=== PATIENT | male | born 1980 | race Caucasian/White ===

== ENCOUNTER 2023-07-28 01:13 | Day surgery (SDC) | payer BC, SELFPAY ==
[2023-07-18 10:11] VITALS: BMI 25.5
[2023-07-28 06:10] VITALS: BP 117/71; PULSE 55; RESP 16; TEMP 36.2; O2SAT 99; BMI 25.7
[2023-07-28] MEDS: LACTATED RINGERS 1,000 ML 150 ML IV CONT (06:27)
--- NOTE | 2023-07-28 07:26 | P.PNAN_ITS ---
Anes - Initial Pre Proc Eval Procedure: Operation Date: 07/28/23 07:30 Proposed Procedures p Screening Colonoscopy - Pavan Ramirez MD Date/Time: 07/28/23 07:26 Surgeon: Pavan Ramirez MD Pre Op Diagnosis: neoplasm screening Patient Data Age: 43 Gender: M Height: 1.78 m Weight: 81.3 kg Last Vital Signs Temp 97.1 F L 07/28/23 06:10 Pulse 55 L 07/28/23 06:10 Resp 16 07/28/23 06:10 BP 117/71 07/28/23 06:10 Pulse Ox 99 07/28/23 06:10 O2 Del Method Room Air 07/28/23 06:10 Allergies Allergy/AdvReac Type Severity Reaction Status Date / Time No Known Allergies Allergy Verified 07/28/23 06:18 Patient hx anesthesia problems: none Family hx anesthesia problems: none Results Review: All pre-operative results and documents have been reviewed as part of the pre- operative evaluation. [facility] Social History Social History Smoking status: Never smoker Alcohol intake: former Alcohol use details: stopped 2019, previous use 7 drinks per week Substance use: current Substance use type: other Other substance usage details: CBD Gummies Living arrangements: with family Spiritual care concerns: No Anes - Eval Final PreProcedure Day of Procedure 07/28/23 07:26 Patient weight: normal Heart: regular rate and rhythm Lungs: clear to auscultation Airway: Mallampati scale class 1 Neurological: alert and oriented Last oral intake: >/= 8 hours ASA classification: I Emergent: no Anesthetic plan: proceed Anesthesia type and monitoring: general GIVS and standard monitoring Results Review: All pre-operative results and documents have been reviewed as part of the pre- operative evaluation. Informed Consent: The patient's anesthetic plan and its attendant risks and benefits were discussed with the patient/family/POA. Questions were solicited and answers provided to the satisfaction of the patient/family/POA.
--- NOTE | 2023-07-28 07:46 | P.HP_ITS ---
History of Present Illness History of Present Illness Consent: Risks, benefits, and alternatives have been discussed and questions answered. Patient agrees to proceed with procedure. Chief complaint: neoplasm screening Narrative: James Quan Jr. is a 43 year old male Presents for screening colonoscopy. Patient's current weight appetite and bowel movements are normal. Patient denies abdominal pain. He has had no bleeding. Family history is noncontributory. Review of Systems Review of Systems: Review of systems noncontributory. ON LICENSE OF [facility] Social History Social History Smoking status: Never smoker Alcohol intake: former Alcohol use details: stopped 2019, previous use 7 drinks per week Substance use: current Substance use type: other Other substance usage details: CBD Gummies Living arrangements: with family Spiritual care concerns: No Meds Home Medications and Allergies Allergies Allergy/AdvReac Type Severity Reaction Status Date / Time No Known Allergies Allergy Verified 07/28/23 06:18 Vital Signs Vital Signs - 24 hr 07/28/23 06:10 Temperature 97.1 F L Pulse Rate 55 L Respiratory Rate 16 Blood Pressure 117/71 Pulse Oximetry 99 Oxygen Delivery Room Air Exam Narrative: Physical exam reveals patient to be alert. Vital signs stable. HEENT exam is unremarkable. Patient is anicteric. Lungs are clear to auscultation and percussion. Heart is without murmur or extra sounds. Abdomen bowel sounds are present soft nontender with no hepatosplenomegaly. Digital external rectal exam is normal. Assessment and Plan Assessment and plan (1) Encounter for screening colonoscopy: Code(s): Z12.11 - Encounter for screening for malignant neoplasm of colon Status: Acute Assessment and Plan: Patient presents today for screening colonoscopy. He appears to be at average risk for colon polyps. Plan for screening colonoscopy at this time. Further recommendations may be given after endoscopy.
[2023-07-28 07:48] VITALS: BP 101/57; PULSE 62; RESP 18; O2SAT 95
[2023-07-28 07:58] VITALS: BP 118/73; PULSE 65; RESP 20; O2SAT 99
[2023-07-28 08:08] VITALS: BP 115/72; PULSE 58; RESP 13; O2SAT 100
== END 2023-07-28 08:13 | disposition home or self-care (01) ==
PROVIDERS: PCP Physician Assistant; Visit Provider Internal Medicine Gastroenterology
PROC: 0DJD8ZZ Inspection of Lower Intestinal Tract, Via Natural or Artificial Opening Endoscopic (ICD-10-PCS; CPT 45378; principal; 2023-07-28 07:30)
DX: Z12.11 Encounter for screening for malignant neoplasm of colon (principal); D12.2 Benign neoplasm of ascending colon; K64.8 Other hemorrhoids
CPT/HCPCS: 45380; 88305; J2704; J7120

== ENCOUNTER 2025-01-24 09:04 | Outpatient (CLI) | payer BC, SELFPAY ==
--- NOTE | ~2025-01-24 | US_ITS ---
EXAMINATION: US soft tissue chest DATE: 01/24/2025 09:22 INDICATION: Infrasternal chest wall subcutaneous nodule TECHNIQUE: Multiple grayscale and Doppler ultrasound images of the infrasternal chest wall region of concern were obtained. COMPARISON: None FINDINGS: 1.8 x 1.5 x 1.1 cm superficial subcutaneous mass at the region of concern which is isoechoic and with similar echotexture to the surrounding subcutaneous fat most consistent with a lipoma. There is a sm all central crescentic hypoechoic region with posterior acoustic shadowing which could represent efra y calcification consistent ascending fat necrosis. IMPRESSION: 1. 1.8 cm subcutaneous mass at the region of concern with appearance most consistent with and statist ically most likely to represent a lipoma. Reviewed, dictated and finalized at location B. IMPRESSION: 1. 1.8 cm subcutaneous mass at the region of concern with appearance most consi stent with and statistically most likely to represent a lipoma.
--- NOTE | ~2025-01-24 | US_ITS ---
EXAMINATION: US soft tissue UE RT DATE: 01/24/2025 09:20 INDICATION: Localized swelling at the posterior inferior right elbow TECHNIQUE: Multiple grayscale and Doppler ultrasound images of the region of concern at the right elb ow were obtained. COMPARISON: None FINDINGS: At the region of concern posterior to the proximal ulna is a 2.7 x 1.1 x 0.2 cm lobular region in the subcutaneous tissues which appears similar in echogenicity to the surrounding subcutaneous fat but w ith subtle hypoechoic capsule. IMPRESSION: 1. 2.7 x 1.1 x 0.2 cm region of the subcutaneous fat overlying the proximal ulna which could represen t a small lipoma, artifactual nodular. Normal subcutaneous fat resulting from surrounding inflammator y edema or potentially synovium within a nonfluid-filled olecranon bursa. Reviewed, dictated and finalized at location B. IMPRESSION: 1. 2.7 x 1.1 x 0.2 cm region of the subcutaneous fat overlying the proximal uln a which could represent a small lipoma, artifactual nodular. Normal subcutaneou s fat resulting from surrounding inflammatory edema or potentially synovium wit hin a nonfluid-filled olecranon bursa.
== END 2025-01-24 09:05 | disposition home or self-care (01) ==
LOC: GOSHIMG 09:05
PROVIDERS: PCP Physician Assistant; Visit Provider Physician Assistant
DX: R22.31 Localized swelling, mass and lump, right upper limb (principal)
CPT/HCPCS: 76604; 76882